=== PATIENT | female | born 1950 | race Caucasian/White ===

== ENCOUNTER 2017-01-20 20:39 | Inpatient (IN) | payer MEDICARE, OTHER ==
[2017-01-20] MEDS ORDERED: TENORMIN100 M1 PO (21:07)
[2017-01-20] MEDS ORDERED: PRAVACHOL40 M1 PO (21:07)
[2017-01-20] MEDS ORDERED: SYMBICORT 80-41 PUFF INH (21:08)
[2017-01-20] MEDS ORDERED: CARDIZEM CD120 M1 PO (21:08)
[2017-01-20] MEDS ORDERED: OS-CAL 500+D31 EAC1 PO (21:09)
[2017-01-20] MEDS ORDERED: FUROSEMIDE40 M2 PO (21:09)
[2017-01-20] MEDS ORDERED: HYDRALAZINE HCL25 M1 PO (21:10)
[2017-01-20] MEDS ORDERED: MULTI-VITAMIN1 EAC3 (21:11)
[2017-01-20 23:56] LABS: BASO % 0.3 % (0-2); EOS % 0.5 % (0-7); HGB-HEMOGLOBIN 14.9 gm/dl (12.0-15.5); IMMATURE GRANULOCYTES ABSOLUTE 0.02 tho/cmm (0-0.03); IMMATURE GRANULOCYTES PERCENT 0.3 % (0-0.3); LYMPH ABSOLUTE COUNT 1.3 tho/cmm (0.8-4.5); MCH (MEAN CORPUSCULAR HGB) 33.4 pg (28.0-32.0); MCHC MEAN CORPUSCULAR HGB CONC 33.9 % (32.0-36.0); MCV (MEAN CELL VOLUME) 98.7 fl (82.0-96.0); MEAN PLATELET VOLUME 9.8 cmc (9.4-12.4); MONO % 10.9 % (0-12); MONOCYTE ABSOLUTE COUNT 0.9 tho/cmm (0.0-1.2); NEUTROPHIL ABSOLUTE COUNT 5.7 tho/cmm (1.6-8.0); NEUTROPHIL-AUTOMATED 5.7 tho/cmm (1.6-8.0); PLATELET COUNT 232 tho/cmm (150-450); RED BLOOD COUNT 4.46 mil/cmm (4.00-5.20); RED CELL DISTRIBUTION WIDTH 13.8 % (12.4-16.4); WHITE BLOOD COUNT 7.9 tho/cmm (4.0-10.0)
[2017-01-21 00:09] LABS: ALB/GLOB RATIO 0.9 (0.8-2.0); ALBUMIN 3.7 g/dl (3.5-5.0); ALKALINE PHOSPHATASE 78 U/L (33-138); ALT/SGPT 32 U/L (12-78); ANION GAP 16 mmol/L (0-20); AST/SGOT 41 U/L (10-40); BILIRUBIN,TOTAL 0.7 mg/dl (0-1.5); BLOOD UREA NITROGEN 38 mg/dl (6-24); CALCIUM 9.5 mg/dl (8.5-10.5); CARBON DIOXIDE-VENOUS 28 mmol/L (22-32); CHLORIDE 94 mmol/l (96-110); CREATININE 2.11 mg/dl (0.50-1.10); GLUCOSE 92 mg/dL (70-110); POTASSIUM 5.3 mmol/L (3.7-5.1); SODIUM 133 mmol/L (135-145); eGFR VALUE FOR BLACK 28 mL/Min
[2017-01-21 05:36] LABS: BASO % 0.3 % (0-2); EOS % 0.6 % (0-7); HGB-HEMOGLOBIN 13.6 gm/dl (12.0-15.5); IMMATURE GRANULOCYTES ABSOLUTE 0.02 tho/cmm (0-0.03); IMMATURE GRANULOCYTES PERCENT 0.3 % (0-0.3); LYMPH % 10.4 % (20-45); LYMPH ABSOLUTE COUNT 0.7 tho/cmm (0.8-4.5); MCH (MEAN CORPUSCULAR HGB) 32.4 pg (28.0-32.0); MCHC MEAN CORPUSCULAR HGB CONC 33.2 % (32.0-36.0); MCV (MEAN CELL VOLUME) 97.6 fl (82.0-96.0); MONO % 5.8 % (0-12); MONOCYTE ABSOLUTE COUNT 0.4 tho/cmm (0.0-1.2); NEUTROPHIL ABSOLUTE COUNT 5.4 tho/cmm (1.6-8.0); NEUTROPHIL-AUTOMATED 5.4 tho/cmm (1.6-8.0); NEUTROPHILS % 82.6 % (40-80); PLATELET COUNT 211 tho/cmm (150-450); RED CELL DISTRIBUTION WIDTH 13.9 % (12.4-16.4); WHITE BLOOD COUNT 6.6 tho/cmm (4.0-10.0)
[2017-01-21 05:41] LABS: URINE BILIRUBIN NEGATIVE (NEG); URINE BLOOD NEGATIVE (NEG); URINE GLUCOSE (UA) NEGATIVE (NEG); URINE KETONE SMALL (NEG); URINE LEUKOCYTE ESTERASE POSITIVE (NEG); URINE NITRITE NEGATIVE (NEG); URINE PROTEIN MODERATE (NEG); URINE SPECIFIC GRAVITY 1.015 (1.003-1.030)
[2017-01-21 05:42] LABS: INR 2.2 INR (0.9-1.1); PROTHROMBIN TIME 26.3 SECONDS (9.0-13.6)
[2017-01-21 05:44] LABS: URINE APPEARANCE CLEAR; URINE COLOR YELLOW
[2017-01-21 05:56] LABS: ANION GAP 14 mmol/L (0-20); BLOOD UREA NITROGEN 38 mg/dl (6-24); CARBON DIOXIDE-VENOUS 28 mmol/L (22-32); CHLORIDE 93 mmol/l (96-110); CREATININE 2.03 mg/dl (0.50-1.10); GLUCOSE 111 mg/dL (70-110); MAGNESIUM 1.9 mg/dl (1.3-2.6); POTASSIUM 4.5 mmol/L (3.7-5.1); SODIUM 130 mmol/L (135-145); eGFR VALUE FOR BLACK 29 mL/Min
[2017-01-21 06:04] LABS: URINE RBC 0 /[HPF] (0-5)
[2017-01-22 06:17] LABS: ANION GAP 15 mmol/L (0-20); BLOOD UREA NITROGEN 50 mg/dl (6-24); CALCIUM 8.7 mg/dl (8.5-10.5); CARBON DIOXIDE-VENOUS 26 mmol/L (22-32); CHLORIDE 88 mmol/l (96-110); GLUCOSE 150 mg/dL (70-110); POTASSIUM 4.6 mmol/L (3.7-5.1); SODIUM 124 mmol/L (135-145); eGFR VALUE FOR BLACK 22 mL/Min
[2017-01-22 12:21] LABS: BODY FLUID TYPE PLEURAL; BODY FLUID VOLUME 1350 ml
[2017-01-22 12:22] LABS: BODY FLUID APPEARANCE HAZY (CLEAR); BODY FLUID COLOR YELLOW (COLORLESS); BODY FLUID RBC COUNT 2000 cmm (0); BODY FLUID WBC COUNT 167 cmm
[2017-01-22 12:34] LABS: BODY FLUID LYMPHOCYTES 61 %; BODY FLUID MACROPHAGES 22 %; BODY FLUID MESOTHELIAL CELLS 3 %; BODY FLUID NEUTROPHILS 14 %
[2017-01-22 15:16] LABS: URINE TOTAL PROTEIN-RANDOM 32.8 mg/dl (<11.8)
[2017-01-22 18:03] LABS: TSH-THYROID STIMULATING HORM. 0.37 uIU/ml (0.40-3.80)
--- NOTE | 2017-01-22 21:46 | NUR ---
SARTHAK FAY-VISITED WITH PATIENT SHE LAY IN BED COMFORTABLY. PATIENT DENIES PAIN AND IS FEELING SO MUCH BETTER THAN PRIOR TO THE THROACENTESIS. SHE HAD NO QUESTIONS OR CONCERNS AT THIS TIME OTHER THAN WANTED TO KNOW WHY SHE HAD SCD'S ON BUT NOT CONNECTED. I PAGED THE AIDE AND ASKED HER TO TURN THEM ON.
[2017-01-23 06:50] LABS: ANION GAP 14 mmol/L (0-20); BLOOD UREA NITROGEN 61 mg/dl (6-24); CALCIUM 8.7 mg/dl (8.5-10.5); CARBON DIOXIDE-VENOUS 26 mmol/L (22-32); CHLORIDE 89 mmol/l (96-110); CREATININE 2.98 mg/dl (0.50-1.10); GLUCOSE 142 mg/dL (70-110); PHOSPHOROUS 3.3 mg/dl (2.5-4.9); SODIUM 124 mmol/L (135-145); eGFR VALUE FOR BLACK 18 mL/Min
[2017-01-23 06:56] LABS: POTASSIUM 4.9 mmol/L (3.7-5.1)
--- NOTE | 2017-01-23 10:36 | NUR ---
VIRUTAL CARE NOTE: PT RESTING ON CHAIR, STATES FEELING REALLY GOOD. LABS AND PLAN OF CARE REVIEWED WITH PT, ENCOURAGE AMBULATION AT LEAST 4 TIMES PER DAY. DISCHARGE PLAN DISCUSSED, PT DENIES ANY QUESTIONS OR CONCERNS.
--- NOTE | 2017-01-23 20:41 | NUR ---
VN ROUNDING-VISITED [facility] PATIENT SHE LAY IN BED DENIES ANY PAIN. WE DISCUSSED HOW HER NA IS CREEPING UP SO THAT IS GOOD. SHE ASKED ABOUT THE CREATINE AND I REVIEWED RESULTS AND NORMS WITH HER ON THAT AND ABOUT HER GETTING AN ECHO TOMORROW. SHE HAS NO FURTHER QUESTIONS OR CONCERNS OTHER THAN WANTS TO STAY HERE TILL SHE GETS WELL SO SHE DOESNT HAVE TO COME BACK
[2017-01-24 06:04] LABS: ANION GAP 13 mmol/L (0-20); BLOOD UREA NITROGEN 62 mg/dl (6-24); CARBON DIOXIDE-VENOUS 26 mmol/L (22-32); CHLORIDE 97 mmol/l (96-110); CREATININE 2.68 mg/dl (0.50-1.10); GLUCOSE 135 mg/dL (70-110); POTASSIUM 5.1 mmol/L (3.7-5.1); SODIUM 131 mmol/L (135-145); eGFR VALUE FOR BLACK 21 mL/Min
[2017-01-24 09:47] LABS: BODY FLUID TYPE PLEURAL
[2017-01-24] MEDS ORDERED: ELIQUIS5 M1 PO (15:22)
[2017-01-24] MEDS ORDERED: PREDNISONE20 M1 PO (15:44)
[2017-01-24 20:32] LABS: BODY FLUID TYPE PLEURAL
== END 2017-01-24 16:35 | DRG 292 ==
LOC: 5WD 20:39
PROVIDERS: Hospitalist; Internal Medicine; Internal Medicine Critical Care Medicine; Internal Medicine Nephrology; ADMIT Internal Medicine
PROC: 0W993ZZ Drainage of Right Pleural Cavity, Percutaneous Approach (ICD-10-PCS; principal; 2017-01-22)
DX: I50.43 Acute on chronic combined systolic (congestive) and diastolic (congestive) heart failure (principal); J90 Pleural effusion, not elsewhere classified; N17.9 Acute kidney failure, unspecified; I27.2 Other secondary pulmonary hypertension; E87.1 Hypo-osmolality and hyponatremia; I48.92 Unspecified atrial flutter; E87.70 Fluid overload, unspecified; E78.5 Hyperlipidemia, unspecified; I07.1 Rheumatic tricuspid insufficiency; I10 Essential (primary) hypertension; I25.10 Atherosclerotic heart disease of native coronary artery without angina pectoris; N18.3 Chronic kidney disease, stage 3 (moderate); I48.2 Chronic atrial fibrillation; Z85.3 Personal history of malignant neoplasm of breast; I45.10 Unspecified right bundle-branch block
CPT/HCPCS: G8987-GO-CI; G8988-GO-CH; G8989-GO-CH; J1956; J7030; J7050; J7512